=== PATIENT | male | born 1940 | race Caucasian/White ===

== ENCOUNTER 2016-12-27 12:26 | Outpatient (CLI) | payer MEDICARE, OTHER ==
[2016-12-27 14:17] LABS: Hematocrit 44.7 % (42.0-52.0); Mean Platelet Volume 7.4 fL (7.4-10.4); Red Blood Cell (RBC) Count 4.42 mill/uL (4.70-6.10); White Blood Cell (WBC) Count 7.6 thou/uL (4.8-10.8)
[2016-12-27 14:24] LABS: Anion Gap 9 mmol/L (10-20); BUN (Urea Nitrogen) 20 mg/dL (8.4-25.7); Calc. Creatinine Clearance 0 mL/min (70-130); Calcium 9.7 mg/dL (7.8-10.44); Carbon Dioxide 26 mmol/L (23-31); Chloride 106 mmol/L (98-107); Estimated GFR-MDRD 55
== END 2016-12-27 12:27 | disposition home or self-care (01) ==
LOC: LABBT 12:26
PROVIDERS: ATTEND Thoracic Surgery (Cardiothoracic Vascular Surgery)
DX: Z01.812 Encounter for preprocedural laboratory examination (principal); I71.4 Abdominal aortic aneurysm, without rupture
CPT/HCPCS: 80048; 85027

== ENCOUNTER → 2017-01-01 | Day surgery (SDC) | payer MEDICARE, OTHER ==
[2016-12-27 12:47] VITALS: BMI 30.8
[~2017-01-01] MED LIST: Fentanyl 100 MCG/2 ML VIAL ONE; Heparin 10,000 UNITS/1 ML VIAL ONE; Midazolam HCl 2 mg/2 ml Vial ONE
--- NOTE | 2017-01-01 09:29 | OP ---
PREOPERATIVE DIAGNOSIS: Abdominal aortic aneurysm with large patent inferior mesenteric artery. PROCEDURE: Abdominal aortogram, selective inferior mesenteric artery catheterization and coiling of the MACARENA using 5 x 8 and 5 x 15 interlock coil, start time 07:03, completion 07:27. IV sedation uti lized. PROCEDURE IN DETAIL: After prepping and draping the right groin, 1% lidocaine was used to infiltrat e the area. Using ultrasound, the common femoral artery was punctured, wire placed, 5 Italian dilato r and sheath. The tennis racquet catheter was advanced into the aneurysm and 2 injections obtained to isolate the takeoff of the MACARENA. Following this, a Berlni catheter and Vint Trainingson wire were used to ca nnulate the MACARENA confirming this with an injection. Following this, 5 x 8 and 5 x 15 coils were deli hammad avoiding the first recurring branch off of the MACARENA. Following deployment of these 2 coils, sh eath was removed and pressure was held. FLOURO: 5.1. CONTRAST: 15.
== END ==
LOC: CCL 05:30
PROVIDERS: ATTEND Thoracic Surgery (Cardiothoracic Vascular Surgery)
DX: I71.4 Abdominal aortic aneurysm, without rupture (principal); I25.10 Atherosclerotic heart disease of native coronary artery without angina pectoris; I10 Essential (primary) hypertension; E78.5 Hyperlipidemia, unspecified; I48.0 Paroxysmal atrial fibrillation; C34.80 Malignant neoplasm of overlapping sites of unspecified bronchus and lung; Z87.891 Personal history of nicotine dependence; Z82.49 Family history of ischemic heart disease and other diseases of the circulatory system
CPT/HCPCS: 37242; 61626; 75726; 76942; 85347; C1769; 99152; 99153; J1644; J2250; J3010

== ENCOUNTER 2017-01-08 05:44 | Inpatient (IN) | payer MEDICARE, OTHER ==
[2017-01-08] MEDS ORDERED: Protamine Sulfate 50 MG/5 ML VIAL ONE (06:34)
[2017-01-08] MEDS ORDERED: Heparin 5,000 UNITS/ML VIAL ONE ×2 (06:34→07:03)
[2017-01-08 06:52] LABS: Hematocrit 44.1 % (42.0-52.0); Mean Platelet Volume 7.8 fL (7.4-10.4); Red Blood Cell (RBC) Count 4.39 mill/uL (4.70-6.10); White Blood Cell (WBC) Count 7.8 thou/uL (4.8-10.8)
[2017-01-08 07:08] LABS: Anion Gap 12 mmol/L (10-20); BUN (Urea Nitrogen) 27 mg/dL (8.4-25.7); Calc. Creatinine Clearance 59 mL/min (70-130); Calcium 9.5 mg/dL (7.8-10.44); Carbon Dioxide 23 mmol/L (23-31); Chloride 107 mmol/L (98-107); Estimated GFR-MDRD 48
[2017-01-08] MEDS ORDERED: Fentanyl 250 MCG/5 ML VIAL ONE (07:14)
[2017-01-08] MEDS ORDERED: CEFAZOLIN/Water 2 GM/20 ML SYRINGE ONE (07:16)
[2017-01-08] MEDS ORDERED: Dexamethasone 20 MG/5 ML VIAL ONE (07:40)
[2017-01-08] MEDS ORDERED: PHENYLEPHRINE-NS 100 MCG/ML 10 ML SYRINGE ONE (07:40)
[2017-01-08] MEDS ORDERED: Glycopyrrolate 0.2 MG/ML 5 ML SYRINGE ONE (07:40)
[2017-01-08] MEDS ORDERED: Propofol 200 MG/20 ML VIAL ONE (07:40)
[2017-01-08] MEDS ORDERED: Lidocaine 2% PF 10 ML AMP (For Epidural Use) ONE (07:40)
[2017-01-08] MEDS ORDERED: Ondansetron HCl/PF 4 MG/2 ML Vial ONE (07:40)
[2017-01-08] MEDS ORDERED: Phenylephrine 10 MG/NS 250 ML 250 ML ONE (07:55)
--- NOTE | 2017-01-08 11:47 | OP ---
PREOPERATIVE DIAGNOSIS: Abdominal aortic aneurysm. POSTOPERATIVE DIAGNOSIS: Abdominal aortic aneurysm. PROCEDURES PERFORMED: Endovascular aneurysm repair with Medtronic Endurant device using a 28 x 16 x 166 main body right, 16 x 16 x 9.3 cm left limb. CONTRAST: 55 mL FLUOROSCOPY: 9 minutes 57 seconds. SURGEON: Dr. Kimbrough. HUMANITIES TEACHER: Dr. Hughes. ESTIMATED BLOOD LOSS: 100. DESCRIPTION OF PROCEDURE: After adequate anesthesia had been obtained, the patient was prepped and draped. Ultrasound guided common femoral artery puncture was performed bilaterally and bilateral Pe rclose devices were deployed. A Contra catheter was placed up the right side and angiography obtain ed. Contra catheter was then replaced on the left side and the main body was deployed through the r ight side after removing the sheath. Repeat angiography confirmed the left lower accessory renal ar sully and the device was deployed below this. Contralaterally, the gate was cannulated and the secon d limb deployed on the left. The right limb was then completely deployed and a 14-Ecuadorean sheath was placed on the right and a 12-Ecuadorean on the left. Balloons were then used to complete the procedure and completion angiography showed preservation of the accessory renal artery on the left with no en doleak. Sheaths were removed and Perclose devices deployed bilaterally initially over the Bentson g uidewires and then the wires were removed. There was good hemostasis and palpable posterior tibial pulses.
[2017-01-08] MEDS ORDERED: Fentanyl 100 MCG/2 ML VIAL SLOW IVP PRN ×2 (12:33)
[2017-01-08] MEDS ORDERED: Ondansetron HCl/PF 4 MG/2 ML Vial IVP PRN (12:33)
[2017-01-08] MEDS ORDERED: Acetaminophen 325 MG TAB PO PRN (12:33)
[2017-01-08] MEDS ORDERED: HYDROcodone/Acetaminophen 5/325 mg Tablet PO PRN ×2 (12:33)
[2017-01-08] MEDS ORDERED: Nitroglycerin 50 MG/250 ML BOT 250 ML IVPB PRN (12:33)
[2017-01-08 12:55] VITALS: BMI 29.5
[2017-01-08] MEDS: Sodium Chloride 0.9% 1,000 ML IV SCH ×2 (13:11→21:25)
[2017-01-08] MEDS: CEFAZOLIN/Water 2 GM/20 ML SYRINGE SLOW IVP SCH ×2 (13:14→21:26)
[2017-01-08] MEDS: hydrALAZINE 25 MG TAB PO SCH ×2 (14:27→21:23)
[2017-01-08 14:28] VITALS: BP 138/80
[2017-01-08] MEDS: Pilocarpine 1% Ophth Drops 15 ML BOT EA EYE SCH ×3 (14:52→21:25)
[2017-01-08] MEDS ORDERED: Latanoprost 0.005% Ophth Soln 2.5 ml Bottle EA EYE SCH (21:00)
[2017-01-08] MEDS ORDERED: Atorvastatin Calcium 20 MG TAB PO SCH (21:00)
[2017-01-08] MEDS ORDERED: FLU VACC TS2017-18 (>65YR) 0.5 ML SYRINGE IM ONE (21:00)
[2017-01-08] MEDS: Lisinopril 10 MG TAB PO SCH (21:25)
[2017-01-08] MEDS: Sotalol HCl 80 MG TAB PO SCH (21:25)
[2017-01-09] MEDS: Sodium Chloride 0.9% 1,000 ML IV SCH (02:58)
[2017-01-09 04:56] LABS: #Basophils 0.1 thou/uL (0.0-0.2); #Lymphocytes 0.8 thou/uL (1.20-3.40); #Monocytes 1.6 thou/uL (0.11-0.59); #Neutrophils 9.9 thou/uL (1.40-6.50); %Basophils 0.4 % (0.0-1.0); %Eosinophils 0.1 % (0.0-10.0); %Lymphocytes 6.7 % (21.0-51.0); %Monocytes 12.8 % (0.0-10.0); Hematocrit 40.6 % (42.0-52.0); Mean Platelet Volume 8.1 fL (7.4-10.4); Red Blood Cell (RBC) Count 3.95 mill/uL (4.70-6.10); White Blood Cell (WBC) Count 12.4 thou/uL (4.8-10.8)
[2017-01-09 04:57] LABS: Anion Gap 15 mmol/L (10-20); BUN (Urea Nitrogen) 24 mg/dL (8.4-25.7); Calc. Creatinine Clearance 68 mL/min (70-130); Calcium 9.2 mg/dL (7.8-10.44); Carbon Dioxide 22 mmol/L (23-31); Chloride 105 mmol/L (98-107); Estimated GFR-MDRD 59
[2017-01-09] MEDS: Sotalol HCl 80 MG TAB PO SCH (06:07)
[2017-01-09] MEDS: Lisinopril 10 MG TAB PO SCH (06:07)
[2017-01-09] MEDS: hydrALAZINE 25 MG TAB PO SCH (06:07)
[2017-01-09] MEDS: CEFAZOLIN/Water 2 GM/20 ML SYRINGE SLOW IVP SCH (06:08)
--- NOTE | 2017-01-09 06:29 | DIS ---
HOSPITAL COURSE: The patient was admitted and underwent an endovascular aneurysm repair using a 2 p iece Endurant system. He had preservation of a lower pole accessory renal artery on the left. His creatinine on admission was 1.4 and at discharge was 1.2. Hemoglobin is stable at 14. The patient had a total contrast load of 55 mL. He will be discharged today after percutaneous approach with no change in his medical regimen. Discharge and follow up instructions were given.
[2017-01-09 08:40] VITALS: TEMP 98.5
--- NOTE | 2017-01-11 15:52 | EKG ---
Test Reason : PREOP Blood Pressure : / mmHG Vent. Rate : 073 BPM Atrial Rate : 073 BPM P-R Int : 184 ms QRS Dur : 104 ms QT Int : 436 ms P-R-T Axes : 034 017 009 degrees QTc Int : 480 ms Sinus rhythm with frequent Premature ventricular complexes Inferior-posterior infarct , age undetermined Abnormal ECG No previous ECGs available Confirmed by DR. Cheryl MERCADO ([id number]) on 01/11/2017 3:51:42 PM Referred By: JOSE Confirmed By:DR. Cheryl MERCADO
== END 2017-01-09 09:21 | disposition home or self-care (01) | DRG 269 ==
LOC: SURG A 05:44 → CCU 12:25
PROVIDERS: ADMIT Thoracic Surgery (Cardiothoracic Vascular Surgery); ATTEND Thoracic Surgery (Cardiothoracic Vascular Surgery)
PROC: 04V03DZ Restriction of Abdominal Aorta with Intraluminal Device, Percutaneous Approach (ICD-10-PCS; principal; 2017-01-08)
DX: I71.4 Abdominal aortic aneurysm, without rupture (principal); I48.0 Paroxysmal atrial fibrillation; I10 Essential (primary) hypertension; E78.5 Hyperlipidemia, unspecified; I25.10 Atherosclerotic heart disease of native coronary artery without angina pectoris; Z85.118 Personal history of other malignant neoplasm of bronchus and lung; Z88.2 Allergy status to sulfonamides; Z79.82 Long term (current) use of aspirin
CPT/HCPCS: 36415; 76001; 80048; 85025; 85027; 86850; 86900; 86901; 90471; 90682; 93005; 93010; C1726; C1760; C1769; C1894; G0008; J1100; J1642; J1644; J2001; J2405; J2704; J2720; J3010; Q2036

== ENCOUNTER 2017-04-22 13:06 | Outpatient (CLI) | payer MEDICARE, OTHER ==
[~2017-04-22 13:06] MED LIST changes: -Fentanyl 100 MCG/2 ML VIAL ONE; -Heparin 10,000 UNITS/1 ML VIAL ONE; +Iopamidol 370 76% 100 ML VIAL ONE; -Midazolam HCl 2 mg/2 ml Vial ONE
== END 2017-04-22 13:07 | disposition home or self-care (01) ==
LOC: BICCT 13:06
PROVIDERS: ATTEND Thoracic Surgery (Cardiothoracic Vascular Surgery)
DX: I71.4 Abdominal aortic aneurysm, without rupture (principal); Z95.818 Presence of other cardiac implants and grafts
CPT/HCPCS: 74174